=== PATIENT | female | born 1995 | race Hispanic/Latino ===

== ENCOUNTER 2019-10-04 15:36 | Outpatient (CLI) | payer OTHER ==
--- NOTE | 2019-10-04 16:16 | ULT ---
Exam: Transabdominal pelvic ultrasound HISTORY: Absent heart tones. Evaluate size and dates. COMPARISON: None TECHNIQUE: Transabdominal imaging of the gravid uterus is performed. Ovaries are interrogated with gr ayscale, color flow, Doppler imaging and spectral waveform analysis FINDINGS: Uterus is identified, without myometrial masses. Uterus measures 10.3 x 6.4 x 8.1 cm Within the endometrium, there is a gestational sac, yolk sac and pole. [place]-rump length is 1.5 cm corresponding to gestational age of 8 weeks 3 days. heart tones: 174 bpm No subchorionic hemorrhage Left ovary has a normal echotexture measuring 2.0 x 1.2 x 1.6 cm Right ovary has a normal echotexture measuring 2.5 x 1.8 x 2.8 cm. No free fluid Ovarian Doppler: Vascular flow to both ovaries IMPRESSION: 1. Single intrauterine gestation. Gestational age by crown-rump length is 8 weeks 3 days. 2. heart tones with a rate 174 bpm
== END 2019-10-04 15:37 | disposition home or self-care (01) ==
LOC: BICULT 15:36
PROVIDERS: ATTEND Family Medicine
DX: O99.611 Diseases of the digestive system complicating pregnancy, first trimester (principal); K62.5 Hemorrhage of anus and rectum; O99.281 Endocrine, nutritional and metabolic diseases complicating pregnancy, first trimester; E56.9 Vitamin deficiency, unspecified; O99.89 Other specified diseases and conditions complicating pregnancy, childbirth and the puerperium; R07.9 Chest pain, unspecified; R51 Headache; O21.9 Vomiting of pregnancy, unspecified; Z3A.08 8 weeks gestation of pregnancy
CPT/HCPCS: 76856; 93976

== ENCOUNTER 2019-10-06 08:49 | Inpatient (IN) | payer MEDICAID, OTHER ==
[2019-10-06] MEDS ORDERED: Ondansetron PF 4 MG/2 ML Vial ONE (09:54)
[2019-10-06 09:58] LABS: #Basophils 0.1 thou/uL (0.0-0.2); #Lymphocytes 0.9 thou/uL (1.20-3.40); #Monocytes 0.2 thou/uL (0.11-0.59); #Neutrophils 13.8 thou/uL (1.40-6.50); %Basophils 0.5 % (0.0-1.0); %Eosinophils 0.1 % (0.0-10.0); %Lymphocytes 5.8 % (21.0-51.0); %Monocytes 1.5 % (0.0-10.0); %Neutrophils 92.1 % (42.0-75.0); Hemoglobin 12.6 g/dL (12.0-16.0); Mean Corpuscular HGB CONC 34.6 g/dL (32.0-36.0); Mean Corpuscular Volume 81.1 fL (78.0-98.0); Platelet Count 301 thou/uL (130-400); RBC Distribution Width 13.5 % (11.5-14.5); Red Blood Cell (RBC) Count 4.48 mill/uL (4.20-5.40)
[2019-10-06 10:10] LABS: ALT (SGPT) 19 U/L (8-55); AST (SGOT) 21 U/L (5-34); Albumin 4.7 g/dL (3.5-5.0); Alkaline Phosphatase 37 U/L (40-110); Anion Gap 20 mmol/L (10-20); BUN (Urea Nitrogen) 8 mg/dL (7.0-18.7); Bilirubin, Total 0.7 mg/dL (0.2-1.2); CK (CPK) 120 U/L (29-168); Calc. Creatinine Clearance 0 mL/min (70-130); Calcium 9.4 mg/dL (7.8-10.44); Carbon Dioxide 10 mmol/L (22-29); Chloride 105 mmol/L (98-107); Estimated GFR-MDRD Greater than 90; Globulin 3.3 g/dL (2.4-3.5); Glucose 164 mg/dL (70-105); Lipase 18 U/L (8-78); Potassium 3.2 mmol/L (3.5-5.1); Sodium 132 mmol/L (136-145)
[2019-10-06 10:28] LABS: Bacteria/HPF None Seen HPF (None Seen); Bilirubin Negative (Negative); Blood, Urine 2+ (Negative); Clarity Clear (Clear); Glucose, Urine (Dipstick) 150 mg/dL (Negative); Leukocyte 25 Leu/uL (Negative); Nitrite Negative (Negative); Protein, Urine (Dipstick) 70 mg/dL (Neg-Trace); Urobilinogen Normal mg/dL (Less than 2)
[2019-10-06] MEDS ORDERED: Lidocaine Viscous Sol 2% 15 ml UD Cup ONE (10:35)
[2019-10-06] MEDS ORDERED: Promethazine HCl 25 MG/ML VIAL ONE (10:35)
[2019-10-06] MEDS ORDERED: Mag-Al 1200 mg/1200 mg/30 ML UDCUP ONE (10:35)
[2019-10-06] MEDS ORDERED: Sodium Chloride 0.9% 1,000 ML IV SCH (12:00)
[2019-10-06] MEDS ORDERED: Ondansetron ODT 4 MG TAB SL PRN (12:00)
[2019-10-06] MEDS ORDERED: Promethazine HCl 25 MG in Sodium Chloride 0.9% 50 ML IVPB PRN (12:00)
[2019-10-06] MEDS ORDERED: Ondansetron PF 4 MG/2 ML Vial IVP PRN (12:00)
--- NOTE | 2019-10-06 13:04 | PDOC.FPROB ---
FMR OB H&P: HPI - History of Present Illness Chief Complaint: Vomiting Indentification: 24 yo History of Present Illness: This is a at 8.5wks by 8.3 wk US who presents to the ED with a cc of burping and vomiting. She states it started yesterday morning off an on but has acutely worsened in the last 24 hours. She says she does not feel nauseous, the belching is what is bothering her most and is making her feel like she wants to vomit. She states she was improved in the shower. She tried zofran but threw it up. She reports subjective fever. Last BM was September 23. She reports she has had bright red blood per rectum since then. She reports pain when she tries to defecate. She found out she was on Sep 12, has not had a PNC appointment yet, although she did have an U/S completed on 10/04/2019 which showed she was at EGA of 8.3 weeks. Patient was arrested on Sep 21, 2019, on that day she reports heavily drinking a bottle of wine & smoking marijuana. Denies any other substance use. Of note, Patient does report that she has a history of Ulcerative Colitis which was diagnosed by colonoscopy with Dr. Elizondo in [place], [place] in 2014. She says she lost her insurance and has not had an appointment with him since 2016, also unable to take medications. She says she was taking Amitryptyline for her symptoms prior to knowing she was and has been switched to taking Prozac since then. Primary Care Physician: [facility] FMR OB H&P: Current - Care : 4 Para: 2011 Gestational age: 8.5 Dating Criteria: 8.3 wk sono - OB Labs Blood type: unknown RH: unknown Antibody Screen: unknown HIV: unknown RPR: unknown HepBsAg: unknown Quad screen: unknown Gonorrhea: unknown Chlamydia: unknown GBS: unknown - First Trimester Ultrasound First trimester: 8.3 weeks on 10/04/2019 FHR 174, normal dating U/S FMR OB H&P: History - Past Medical History PMH: Ulcerative colitis Anxiety Asthma - OB History OB History: Previous complications during with anemia and low BMI, also decreased movement with last 2 other deliveries were 1 elective - [facility] History [facility] History: Hx of chlamydia age 16 - Surgical History Sx History: Tooth extraction d/t infection, required hospitalization for 1 wk in May 2019 - Social History Social History: Last used marijuana September 21 Alcohol use September 21 full bottle of Red wine, occasional binge drinking - Family History Family History: Mother breast, ovarian, cervical Paternal side breast cancer FMR OB H&P: Medications - Current Home Medications: Medication Instructions Recorded Confirmed Type Ondansetron HCl [Zofran] 4 mg PO Q6HR PRN 10/06/19 10/06/19 History Pnv No.95/Ferrous Fum/Folic AC 1 each PO DAILY 10/06/19 10/06/19 History [ Multivitamin Tablet] Allergies/Adverse Reactions: Allergies Allergy/AdvReac Type Severity Reaction Status Date / Time No Known Allergies Allergy Unverified 10/06/19 15:45 FMR OB H&P: ROS - Review of Systems General: reports: weight/appetite/sleep changes, fatigue. denies: fever/chills Eyes: reports: vision changes (some blurry vision) ENT: denies: nasal congestion, rhinorrhea, sore throat Cardiovascular: reports: chest pain, palpitation Respiratory: denies: cough, congestion, shortness of breath Gastrointestinal: reports: vomiting, diarrhea, constipation, bright red blood. denies: abdominal pain, nausea Genitourinary (Female): denies: dysuria, vaginal discharge, vaginal pain, vaginal bleeding Musculoskeletal: denies: pain, stiffness, tenderness, redness Neurologic: reports: numbness (face, face and fingers), headache. denies: weakness, loss of counsciousness Integumentary: denies: itching, rash, lesions Endocrine: denies: polydipsia, polyuria Psychological: reports: anxiety. denies: depression FMR OB H&P: Vital Signs - Maternal Vital signs: BP 126/88, HR 104, Pulse ox 100% RA, RR 20, Temp FMR OB H&P: Physical Exam - Physical Exam General: awake, alert and oriented, other (Mild distress, no vomiting observed) HEENT: normocephalic and atraumatic, EOMI, MMM, conjunctiva clear, grossly normal vision, grossly normal hearing Neck: supple, no JVD Chest: non-tender to palpation Heart: RRR, normal S1/S2, no murmurs/rubs/gallops, pulses present, no edema General: CTAB, no respiratory distress, good air movement, no wheezing Abdomen: soft, bowel sound present Deviation from normal: TTP in epigastric area Musculoskeletal: pulses present Neurological: sensation to pain,touch and proprioception grossly normal, no focal deficit Skin: no rash, good tugor, no jaundice Lymphatic: no unusual bruising or bleeding Psychiatric: intact recent and remote memory, normal mood and affect FMR OB H&P: Results - Labs Lab results: Laboratory Results - last 24 hr 10/06/19 10/06/19 10/06/19 01:40 09:30 09:30 WBC 15.0 H RBC 4.48 Hgb 12.6 Hct 36.3 MCV 81.1 MCH 28.0 MCHC 34.6 RDW 13.5 Plt Count 301 MPV 9.0 Neutrophils % 92.1 H Lymphocytes % 5.8 L Monocytes % 1.5 Eosinophils % 0.1 Basophils % 0.5 Neutrophils # 13.8 H Lymphocytes # 0.9 L Monocytes # 0.2 Eosinophils # 0.0 Basophils # 0.1 Sodium 132 L Potassium 3.2 L Chloride 105 Carbon Dioxide 10 L Anion Gap 20 BUN 8 Creatinine 0.73 Estimated GFR (MDRD) Greater than 90 Glucose 164 H Calcium 9.4 Total Bilirubin 0.7 AST 21 ALT 19 Alkaline Phosphatase 37 L Creatine Kinase 120 Serum Total Protein 8.0 Albumin 4.7 Globulin 3.3 Albumin/Globulin Ratio 1.4 Lipase 18 Urine Color Light-Yellow Urine Clarity Clear Urine pH 5.5 Ur Specific [place] 1.027 Urine Protein 70 A Urine Glucose (UA) 150 A Urine Ketones Greater than 150 A Urine Blood 2+ A Urine Nitrite Negative Urine Bilirubin Negative Urine Urobilinogen Normal Ur Leukocyte Esterase 25 Urine RBC 11-20 A Urine WBC 4-6 A Ur Squamous Epith Cells 4-6 A Urine Bacteria None Seen FMR OB H&P: A/P - Problem List (1) Increased anion gap metabolic acidosis Current Visit: Yes Status: Acute Code(s): E87.2 - ACIDOSIS (2) Dehydration Current Visit: Yes Status: Acute Code(s): E86.0 - DEHYDRATION (3) Leukocytosis Current Visit: Yes Status: Acute Code(s): D72.829 - ELEVATED WHITE BLOOD CELL COUNT, UNSPECIFIED Qualifiers: Leukocytosis type: unspecified Qualified Code(s): D72.829 - Elevated white blood cell count, unspecified (4) Anxiety Current Visit: Yes Status: Acute Code(s): F41.9 - ANXIETY DISORDER, UNSPECIFIED (5) Rectal bleeding Current Visit: Yes Status: Acute Code(s): K62.5 - HEMORRHAGE OF ANUS AND RECTUM (6) Hypokalemia Current Visit: Yes Status: Acute Code(s): E87.6 - HYPOKALEMIA (7) First trimester Current Visit: Yes Status: Acute Code(s): Z34.91 - ENCNTR FOR SUPRVSN OF NORMAL PREG, UNSP, FIRST TRIMESTER Disposition: 24 yo female who presents with intractable belching and vomiting is admitted for dehydration & metabolic acidosis: #Anion gap metabolic acidosis #Dehydration 2/2 Vomiting -ER provided 3L NS, will continue on maintenance IVF LR @ 100 ml/hr -given GI cocktail in ED with minimal improvement -Promethazine [place] prn, Zofran 4 mg q6h marquise -Protonix BID -Simethicone BID -monitor I/Os, vitals q4h #Substance Abuse -reported hx of marijuana and EtOH abuse -UDS ordered & pending #Leukocytosis, unknown source -UA dirty catch in ER, positive for squamous epithelial, blood, ketones-will repeat UA with straight cath -check G/C off of urine sample #First Trimester -U/S at [facility] on 10/04/2019 shows 8.3 weeks EGA, otherwise normal U/S -continue vitamins -needs to be set up with PNC provider upon discharge #Rectal Bleeding #Constipation -check FOBT -says no BM since September 23 -start Miralax daily, Milk of Mag prn -request records from Dr. Smith, GI office in [place], [place] #Anxiety -continue home Prozac -Unisom for insomnia #Hx of Asthma -not currently on any home inhaler -continue home Symbicort -no recent exacerbations #Hypokalemia -K 3.2 on admission -give 20 meQ KCl IV Diet: Clear Liquids Code status: Full PCP: Ray Purdy Dispo: Stable, admitted to observation on ob/gyn physician/women's unit. Continue to provide fluid resuscitation, check labs, continue to monitor. Anticipate LOS < 48 hrs. Discussion: Date/Time: 10/06/19 1304 This H&P was discussed with Dr. Anand and Dr. Vargas who agree with the above documentation and plan. Addendum - Attending - Attending Attestation Date/Time: 10/06/19 9382 I personally evaluated the patient and discussed the management with Dr. Figueredo I agree with the History, Examination, Assessment and Plan documented above with any addition or exceptions noted below. Will admit patient for severe N/V of with concern for HEG. Patient has been dry heaving for the past several days. Has been triggered by burping. Reports marijuana use. Improved with hot showers. Unsure of weight loss. Labs reviewed. Noted to have electrolyte derangements. Ketones present in urine. UDS pending. TVUS reviewed from previous ER visit. pole documented. No evidence of molar . Make NPO until no evidence of emesis/dry heaving. Marquise Diclegis, zofran, protonix , simethocone. IL promethazine prn. Add reglan or steroids as needed. TPN at day 3 if still with symptoms. Jamilah
[2019-10-06] MEDS ORDERED: Acetaminophen 650 MG Suppository PR PRN (15:46)
[2019-10-06] MEDS ORDERED: Doxylamine 25 MG TAB PO PRN (15:46)
[2019-10-06] MEDS ORDERED: Milk Of Magnesia 30 ML UDCUP PO PRN (15:46)
[2019-10-06] MEDS ORDERED: Acetaminophen 325 MG TAB PO PRN (15:46)
[2019-10-06] MEDS ORDERED: Potassium Chloride 20 MEQ in Premix Bag 1 BAG IVPB SCH (16:00)
[2019-10-06 16:08] VITALS: BMI 25.1
[2019-10-06] MEDS: Lactated Ringer's 1,000 ML IV SCH (16:30)
[2019-10-06 17:42] LABS: Amphetamine Not Detected (NotDetected); Barbiturates Screen Not Detected (NotDetected); Benzodiazepine Screen Not Detected (NotDetected); Cocaine Metabolite Screen Not Detected (NotDetected); Medtox Control Line Valid? VALID (VALID); Medtox Reader # READER 4; Methadone Not Detected (NotDetected); Methamphetamine Not Detected (NotDetected); Opiate Screen Not Detected (NotDetected); Oxycodone Screen Not Detected (NotDetected); Phencyclidine (PCP) Not Detected (NotDetected); THC/Cannabinoid Screen Detected (NotDetected); Tricyclic Screen Detected (NotDetected)
[2019-10-06] MEDS: Ondansetron PF 4 MG/2 ML Vial IVP SCH (18:29)
[2019-10-06 18:33] LABS: Anion Gap 11 mmol/L (10-20); BUN (Urea Nitrogen) 4 mg/dL (7.0-18.7); Calc. Creatinine Clearance 126 mL/min (70-130); Calcium 7.7 mg/dL (7.8-10.44); Carbon Dioxide 14 mmol/L (22-29); Chloride 111 mmol/L (98-107); Estimated GFR-MDRD Greater than 90; Glucose 118 mg/dL (70-105); Potassium 3.1 mmol/L (3.5-5.1); Sodium 133 mmol/L (136-145)
[2019-10-06] MEDS ORDERED: pyridOXINE 50 MG (B6) TAB PO PRN (19:38)
--- NOTE | 2019-10-06 19:38 | PDOC.BPN ---
- Brief Progress Note Paged By RN for increased abdominal pain, Nausea and continued vomiting. Pt describes pain in epigastric area and need to belch. Feels similar to heartburn. Gets better w/ hot shower. Is passing gas, feels better w/ passing gas. Does not feel she has any stool to pass; has not been eating/drinking or keeping anything down since started. VSS. No fever. Examined pt. Abdomen is tender over RLQ. No rebound, Rovsing neg, psoas negative. No guarding. Abdomen is very soft. Mild TTP over epigastric area. +BS , not hypo- nor hyperactive. RRR, no murmur Lungs CTAB Informed nurse to use heating pad for patient's chest and epigastric area since no staff is available to monitor her in shower (residential patient w/ male guard). Give GI cocktail. Give simethicone, pantoprazole, and unisom dose early, will add pyridoxine to make Diclegis. Order fleet enema prn for no BM for couple of weeks now. Do not think imaging is warranted at this time; abdomen did not appear acutely distended. Informed RN to notify MD if spikes fever or acute worsening of abdomen.
[2019-10-06] MEDS ORDERED: Fleet Enema 133 ML BOT PR PRN (19:42)
[2019-10-06] MEDS ORDERED: Lidocaine 2% Viscous Solution 10 ML, Aluminum & Magnesium Hydroxide 30 ML SSW SCH (19:45)
[2019-10-06] MEDS: Simethicone Chewable 80 MG TAB PO SCH (20:31)
[2019-10-06] MEDS: Multivitamins, Adult 10 ML, Folic Acid 1 MG, Thiamine HCl 100 MG in Dextrose 5 %-0.45 %... IV SCH (20:31)
[2019-10-06] MEDS: Pantoprazole 40 MG VIAL IVP SCH (20:31)
--- NOTE | 2019-10-06 22:28 | PDOC.BPN ---
- Brief Progress Note reevaluated pt to see if any improvement. Received the simethicone and PPI. Resting comfortably. Pain improved. dynamo tender to palpation over RLQ and epigastrium as before. Unchanged abdomen. patient more comfortable at rest.
[2019-10-07] MEDS: Ondansetron PF 4 MG/2 ML Vial IVP SCH ×5 (00:20→23:33)
[2019-10-07] MEDS: Lactated Ringer's 1,000 ML IV SCH ×5 (02:44→20:30)
[2019-10-07 06:02] LABS: #Lymphocytes 2.6 thou/uL (1.20-3.40); #Neutrophils 11.6 thou/uL (1.40-6.50); %Basophils 0.1 % (0.0-1.0); %Eosinophils 0.1 % (0.0-10.0); %Monocytes 6.8 % (0.0-10.0); %Neutrophils 76.1 % (42.0-75.0); ALT (SGPT) 17 U/L (8-55); AST (SGOT) 23 U/L (5-34); Albumin 4.2 g/dL (3.5-5.0); Alkaline Phosphatase 37 U/L (40-110); Anion Gap 11 mmol/L (10-20); BUN (Urea Nitrogen) Less than 4 mg/dL (7.0-18.7); Bilirubin, Total 0.7 mg/dL (0.2-1.2); Calc. Creatinine Clearance 128 mL/min (70-130); Calcium 8.6 mg/dL (7.8-10.44); Carbon Dioxide 18 mmol/L (22-29); Chloride 104 mmol/L (98-107); Estimated GFR-MDRD Greater than 90; Globulin 3.1 g/dL (2.4-3.5); Glucose 124 mg/dL (70-105); Hemoglobin 11.8 g/dL (12.0-16.0); Large Platelets SLIGHT; MDiff Complete? YES; Mean Corpuscular HGB CONC 35.2 g/dL (32.0-36.0); Mean Corpuscular Hemoglobin 28.2 pg (27.0-31.0); Mean Corpuscular Volume 80.2 fL (78.0-98.0); Mean Platelet Volume 8.8 fL (7.4-10.4); Platelet Count 311 thou/uL (130-400); Protein, Total 7.3 g/dL (6.0-8.3); RBC Distribution Width 13.8 % (11.5-14.5); RBC Morphology Normal; Sodium 130 mmol/L (136-145); White Blood Cell (WBC) Count 15.3 thou/uL (4.8-10.8)
[2019-10-07 06:07] LABS: Potassium 2.9 mmol/L (3.5-5.1)
[2019-10-07] MEDS ORDERED: Potassium Chloride 20 MEQ in Premix Bag 1 BAG IVPB SCH ×2 (06:30→17:30)
[2019-10-07] MEDS ORDERED: Potassium Chloride 20 MEQ TAB PO SCH (06:30)
--- NOTE | 2019-10-07 07:08 | PDOC.FM ---
- Subjective Subjective: Patient states that the Simethicone helped her belching, still belching occasionally but much improved. No episodes of vomiting since yesterday evening. Says her abdominal pain is now mostly in the RLQ. Also complains of pain across low back which improves with heating pad. Has not had a bowel movement yet but states it feels like she does have to have one. Patient reports additionally history that she has had kidney stones in the past. - Objective Vital Signs & Weight: Vital Signs (12 hours) Temp Pulse Resp BP Pulse Ox 10/07/19 04:00 98.2 F 74 20 153/97 H 100 10/07/19 00:00 98.8 F 75 20 128/75 100 10/06/19 20:00 100 10/06/19 19:33 98.2 F 92 22 H 146/89 H 100 Weight Weight 60.328 kg Result Diagrams: 10/08/19 05:28 10/08/19 05:28 Phys Exam - Physical Examination Constitutional: NAD HEENT: moist MMs Neck: no JVD, supple, full ROM Respiratory: no wheezing, no rhonchi, clear to auscultation bilateral Cardiovascular: RRR, no significant murmur Gastrointestinal: soft, no distention, positive bowel sounds TTP in RLQ Musculoskeletal: no edema, pulses present TTP across low back Neurological: normal sensation, moves all 4 limbs Psychiatric: normal affect, A&O x 3 Skin: no rash, normal turgor Dx/Plan (1) Increased anion gap metabolic acidosis Code(s): E87.2 - ACIDOSIS Status: Acute (2) Dehydration Code(s): E86.0 - DEHYDRATION Status: Acute (3) Leukocytosis Code(s): D72.829 - ELEVATED WHITE BLOOD CELL COUNT, UNSPECIFIED Status: Acute Qualifiers: Leukocytosis type: unspecified Qualified Code(s): D72.829 - Elevated white blood cell count, unspecified (4) Anxiety Code(s): F41.9 - ANXIETY DISORDER, UNSPECIFIED Status: Acute (5) Rectal bleeding Code(s): K62.5 - HEMORRHAGE OF ANUS AND RECTUM Status: Acute (6) Hypokalemia Code(s): E87.6 - HYPOKALEMIA Status: Acute (7) First trimester Code(s): Z34.91 - ENCNTR FOR SUPRVSN OF NORMAL PREG, UNSP, FIRST TRIMESTER Status: Acute - Plan Plan: 24 yo female who presents with intractable belching and vomiting is admitted for dehydration & metabolic acidosis: #Anion gap metabolic acidosis #Dehydration 2/2 Vomiting -ER provided 3L NS, will continue on maintenance IVF LR @ 100 ml/hr -given GI cocktail in ED with minimal improvement -Promethazine MA prn, Zofran 4 mg q6h cynthia -Protonix BID -Simethicone BID -monitor I/Os, vitals q4h -Pyridoxine #Substance Abuse -reported hx of marijuana and EtOH abuse -UDS positive for cannabinoids & tricyclics, c/w given history #Leukocytosis, unknown source -UA dirty catch in ER, positive for squamous epithelial, blood, ketones-will repeat UA with straight cath -check G/C off of urine sample #First Trimester -U/S at [facility] on 10/04/2019 shows 8.3 weeks EGA, otherwise normal U/S -continue vitamins -needs to be set up with PNC provider upon discharge #Rectal Bleeding #Constipation -check FOBT -says no BM since September 23 -start Miralax daily, Milk of Mag prn -request records from Dr. Smith, GI office in [place], [place] #Anxiety -continue home Prozac -Unisom for insomnia #Hx of Asthma -not currently on any home inhaler -continue home Symbicort -no recent exacerbations #Hypokalemia -K 3.2 on admission, 2.9 on 10/07 -give 20 meQ KCl IV, additional 80 meQ on 10/07 Diet: Clear Liquids Code status: Full PCP: [facility] Dispo: Stable, admitted to observation on otolaryngology rep/women's unit. Continue to provide fluid resuscitation, labs pending, continue to monitor. Anticipate LOS < 48 hrs. Addendum - Attending - Attending Attestation Date/Time: 10/07/19 9490 I personally evaluated the patient and discussed the management with Dr. Figueredo I agree with the History, Examination, Assessment and Plan documented above with any addition or exceptions noted below. HD#1 Will continue current plan. Still with some symptoms. Improving. Maintain NPO. Adjust IVFs. Consider TPN tomorrow if still with symptoms. Add reglan if without any improvement tomorrow. Continue to monitor BP closely. Patient very anxious and in lots of discomfort from dry heaving unsure at this time if related to HTN. Evaluate once symptoms controlled. No prior history. Jamilah
[2019-10-07] MEDS: Simethicone Chewable 80 MG TAB PO SCH ×4 (08:29→20:29)
[2019-10-07] MEDS: Prenatal Vitamin 1 TAB PO SCH (08:29)
[2019-10-07] MEDS: Polyethylene Glycol 3350 17 GM Packet PO SCH (08:29)
[2019-10-07] MEDS: Pantoprazole 40 MG VIAL IVP SCH ×2 (08:29→20:29)
[2019-10-07] MEDS: Doxylamine 25 MG TAB PO SCH ×2 (12:46→20:29)
[2019-10-07 14:36] LABS: Anion Gap 13 mmol/L (10-20); BUN (Urea Nitrogen) Less than 4 mg/dL (7.0-18.7); Calc. Creatinine Clearance 134 mL/min (70-130); Calcium 8.7 mg/dL (7.8-10.44); Carbon Dioxide 14 mmol/L (22-29); Chloride 110 mmol/L (98-107); Estimated GFR-MDRD Greater than 90; Glucose 108 mg/dL (70-105); Potassium 3.5 mmol/L (3.5-5.1); Sodium 133 mmol/L (136-145)
[2019-10-07 15:49] LABS: Bacteria/HPF None Seen HPF (None Seen); Bilirubin Negative (Negative); Blood, Urine 1+ (Negative); Clarity Clear (Clear); Glucose, Urine (Dipstick) Normal (Negative); Leukocyte Negative Leu/uL (Negative); Nitrite Negative (Negative); Protein, Urine (Dipstick) 30 mg/dL (Neg-Trace); Urobilinogen Normal mg/dL (Less than 2)
[2019-10-07 15:54] LABS: Urine Culture Reflex No No
[2019-10-07] MEDS: Multivitamins, Adult 10 ML, Folic Acid 1 MG, Thiamine HCl 100 MG in Dextrose 5 %-0.45 %... IV SCH (16:35)
[2019-10-07] MEDS: Promethazine HCl 25 MG SUPP PR PRN (19:18)
[2019-10-08] MEDS: Promethazine HCl 25 MG SUPP PR PRN (01:09)
[2019-10-08] MEDS: Ondansetron PF 4 MG/2 ML Vial IVP SCH ×4 (05:08→23:12)
--- NOTE | 2019-10-08 05:31 | PDOC.FM ---
- Subjective Subjective: Pt reports worsening abdominal pain, no BM, and some pain. She denies vomiting but does report dry heaving. She has had some clear liquids but does not report frequent PO intake. - Objective Vital Signs & Weight: Vital Signs (12 hours) Temp Pulse Resp BP Pulse Ox 10/07/19 20:00 100 10/07/19 19:33 99.1 F 67 19 159/98 H 100 Weight Admit Weight 60.328 kg Weight 60.328 kg Result Diagrams: 10/08/19 05:28 10/08/19 05:28 Phys Exam - Physical Examination Constitutional: NAD HEENT: moist MMs Neck: full ROM Respiratory: no wheezing, clear to auscultation bilateral Cardiovascular: RRR, no significant murmur, no rub Gastrointestinal: soft, no distention, positive bowel sounds Diffuse tenderness with palpation, worse than before Musculoskeletal: no edema, pulses present Neurological: normal sensation, moves all 4 limbs Psychiatric: normal affect, A&O x 3 Skin: cap refill <2 seconds Dx/Plan (1) Anxiety Code(s): F41.9 - ANXIETY DISORDER, UNSPECIFIED Status: Acute (2) Dehydration Code(s): E86.0 - DEHYDRATION Status: Acute (3) First trimester Code(s): Z34.91 - ENCNTR FOR SUPRVSN OF NORMAL PREG, UNSP, FIRST TRIMESTER Status: Acute (4) Hypokalemia Code(s): E87.6 - HYPOKALEMIA Status: Acute (5) Increased anion gap metabolic acidosis Code(s): E87.2 - ACIDOSIS Status: Acute (6) Leukocytosis Code(s): D72.829 - ELEVATED WHITE BLOOD CELL COUNT, UNSPECIFIED Status: Acute Qualifiers: Leukocytosis type: unspecified Qualified Code(s): D72.829 - Elevated white blood cell count, unspecified (7) Rectal bleeding Code(s): K62.5 - HEMORRHAGE OF ANUS AND RECTUM Status: Acute - Plan Plan: This is a at 9.0wks by 8.3wk US with a pmh of anxiety, asthma, UC vs IBS Vomiting/belching morning sickness vs cyclic vomiting syndrome due to chronic cannabis use -Promethazine [place] PRN, Scheduled zofran -Simethicone BID -Pyridoxine and doxylamine Dehydration 2/2 above, resolved Anion Gap metabolic acidosis, resolved Substance abuse -Use of marijuana, EtOH during -UDS positive for cannabinoids and tricyclics Leukocytosis -Pending urine culture and urine GC/Chlamydia Rectal bleeding/constipatin -Miralax -PRN milk of mag -suppositories -Plan for manual disimpaction later today -Pending records from Dr. Smith, GI office in [place] Anxiety -Continue home prozac Hx of asthma -Continue Symbicort -Currently controlled Hypokalemia -Replacing Addendum - Attending - Attending Attestation Date/Time: 10/08/19 9409 I personally evaluated the patient and discussed the management with Dr. Anand I agree with the History, Examination, Assessment and Plan documented above with any addition or exceptions noted below - Patient reports that still having some nausea but tolerating small amounts of liquids. c/o abdominal pain but has not had a recent BM. Afebrile VSS. A/P: 1) N/V of - continue current antiemetic regimen. 2) Constipation- will check rectal and disimpact her if needed. Also started on bowel regimen with miralax.
[2019-10-08 06:06] LABS: Anion Gap 11 mmol/L (10-20); BUN (Urea Nitrogen) 4 mg/dL (7.0-18.7); Calc. Creatinine Clearance 130 mL/min (70-130); Calcium 8.2 mg/dL (7.8-10.44); Carbon Dioxide 16 mmol/L (22-29); Chloride 107 mmol/L (98-107); Estimated GFR-MDRD Greater than 90; Glucose 140 mg/dL (70-105); Potassium 3.2 mmol/L (3.5-5.1); Sodium 131 mmol/L (136-145)
[2019-10-08 06:07] LABS: #Lymphocytes 2.2 thou/uL (1.20-3.40); #Neutrophils 13.7 thou/uL (1.40-6.50); %Basophils 0.1 % (0.0-1.0); %Eosinophils 0.3 % (0.0-10.0); %Lymphocytes 12.7 % (21.0-51.0); %Neutrophils 80.9 % (42.0-75.0); Hemoglobin 11.3 g/dL (12.0-16.0); Mean Corpuscular HGB CONC 35.7 g/dL (32.0-36.0); Mean Corpuscular Hemoglobin 28.4 pg (27.0-31.0); Mean Corpuscular Volume 79.6 fL (78.0-98.0); Platelet Count 274 thou/uL (130-400); RBC Distribution Width 13.8 % (11.5-14.5); Red Blood Cell (RBC) Count 3.99 mill/uL (4.20-5.40)
[2019-10-08] MEDS: Lactated Ringer's 1,000 ML IV SCH ×2 (08:52→17:11)
[2019-10-08] MEDS: Polyethylene Glycol 3350 17 GM Packet PO SCH (08:52)
[2019-10-08] MEDS: Doxylamine 25 MG TAB PO SCH ×3 (08:53→21:16)
[2019-10-08] MEDS: Simethicone Chewable 80 MG TAB PO SCH ×4 (08:53→21:16)
[2019-10-08] MEDS: Pantoprazole 40 MG VIAL IVP SCH ×2 (08:53→21:17)
[2019-10-08] MEDS: Prenatal Vitamin 1 TAB PO SCH (08:53)
[2019-10-08] MEDS: Multivitamins, Adult 10 ML, Folic Acid 1 MG, Thiamine HCl 100 MG in Dextrose 5 %-0.45 %... IV SCH (16:58)
[2019-10-08] MEDS: Potassium Bicarbonate/Cit Ac 25 MEQ TAB PO SCH (17:01)
[2019-10-08 21:58] LABS: Chlam.trachomatis by PCR,Urine Not Detected (NotDetected)
[2019-10-09] MEDS: Lactated Ringer's 1,000 ML IV SCH ×2 (01:55→08:29)
[2019-10-09] MEDS: Ondansetron PF 4 MG/2 ML Vial IVP SCH ×3 (05:52→17:22)
--- NOTE | 2019-10-09 06:00 | PDOC.FM ---
- Subjective Subjective: Pt reports she is doing better this morning. She had some nausea with drinking milk of mag but otherwise is better. She states her abdominal pain is improved. She has not had a BM since yesterday but feels like she may be ready. She denies fever, chills, sob, or chest pain. - Objective MAR Reviewed: Yes Vital Signs & Weight: Vital Signs (12 hours) Temp Pulse Resp BP Pulse Ox 10/08/19 20:00 99 10/08/19 19:50 98.6 F 78 20 114/76 99 Weight Admit Weight 60.328 kg Weight 60.328 kg I&O: 10/07/19 10/08/19 10/09/19 06:59 06:59 06:59 Intake Total 1000 Balance 1000 Result Diagrams: 10/09/19 07:10 10/09/19 07:10 Phys Exam - Physical Examination Constitutional: NAD HEENT: moist MMs Neck: full ROM Respiratory: no wheezing, no rales, clear to auscultation bilateral Cardiovascular: RRR, no significant murmur, no rub Gastrointestinal: soft, no distention, positive bowel sounds TTP but improving Musculoskeletal: no edema, pulses present Neurological: moves all 4 limbs Psychiatric: normal affect, A&O x 3 Skin: cap refill <2 seconds Dx/Plan (1) Anxiety Code(s): F41.9 - ANXIETY DISORDER, UNSPECIFIED Status: Acute (2) Dehydration Code(s): E86.0 - DEHYDRATION Status: Acute (3) First trimester Code(s): Z34.91 - ENCNTR FOR SUPRVSN OF NORMAL PREG, UNSP, FIRST TRIMESTER Status: Acute (4) Hypokalemia Code(s): E87.6 - HYPOKALEMIA Status: Acute (5) Increased anion gap metabolic acidosis Code(s): E87.2 - ACIDOSIS Status: Acute (6) Leukocytosis Code(s): D72.829 - ELEVATED WHITE BLOOD CELL COUNT, UNSPECIFIED Status: Acute Qualifiers: Leukocytosis type: unspecified Qualified Code(s): D72.829 - Elevated white blood cell count, unspecified (7) Rectal bleeding Code(s): K62.5 - HEMORRHAGE OF ANUS AND RECTUM Status: Acute - Plan Plan: This is a at 9.0wks by 8.3wk US with a pmh of anxiety, asthma, UC vs IBS Vomiting/belching morning sickness vs cyclic vomiting syndrome due to chronic cannabis use, improved -Promethazine [place] PRN, Scheduled zofran -Simethicone BID -Pyridoxine and doxylamine Dehydration 2/2 above, resolved Anion Gap metabolic acidosis, resolved Substance abuse -Use of marijuana, EtOH during -UDS positive for cannabinoids and tricyclics Leukocytosis, resolved -Pending urine culture and urine GC/Chlamydia Rectal bleeding/constipation -s/p rectal disimpaction 10/08/19, hard stool removed from rectal vault, will repeat as needed -Miralax -PRN milk of mag -suppositories -Pending records from Dr. Smith, GI office in [place] Anxiety -Continue home prozac Hx of asthma -Continue Symbicort -Currently controlled Hypokalemia -Replacing Addendum - Attending - Attending Attestation Date/Time: 10/09/19 1340 I personally evaluated the patient and discussed the management with Dr. Anand I agree with the History, Examination, Assessment and Plan documented above with any addition or exceptions noted below - Patient feeling better. No vomiting. Abdominal pain improving. No BM. Afebrile VSS A/P: 1) Hyperemesis - will advance diet to full liquid. Continue antiemetic regimen 2) Constipation- continue bowel regimen
[2019-10-09] MEDS ORDERED: Milk Of Magnesia 30 ML UDCUP PO SCH (06:15)
[2019-10-09 07:20] LABS: #Basophils 0.1 thou/uL (0.0-0.2); #Eosinphils 0.1 thou/uL (0.0-0.7); #Lymphocytes 2.9 thou/uL (1.20-3.40); #Monocytes 0.6 thou/uL (0.11-0.59); #Neutrophils 5.3 thou/uL (1.40-6.50); %Basophils 0.8 % (0.0-1.0); %Eosinophils 0.9 % (0.0-10.0); %Lymphocytes 31.9 % (21.0-51.0); %Neutrophils 59.3 % (42.0-75.0); Hemoglobin 10.9 g/dL (12.0-16.0); Mean Corpuscular HGB CONC 34.5 g/dL (32.0-36.0); Mean Corpuscular Hemoglobin 28.1 pg (27.0-31.0); Mean Corpuscular Volume 81.4 fL (78.0-98.0); Mean Platelet Volume 8.6 fL (7.4-10.4); Platelet Count 235 thou/uL (130-400); RBC Distribution Width 14.1 % (11.5-14.5); Red Blood Cell (RBC) Count 3.88 mill/uL (4.20-5.40)
[2019-10-09 07:37] LABS: Anion Gap 10 mmol/L (10-20); BUN (Urea Nitrogen) 4 mg/dL (7.0-18.7); Calc. Creatinine Clearance 134 mL/min (70-130); Calcium 8.1 mg/dL (7.8-10.44); Carbon Dioxide 22 mmol/L (22-29); Chloride 107 mmol/L (98-107); Estimated GFR-MDRD Greater than 90; Glucose 80 mg/dL (70-105); Potassium 3.5 mmol/L (3.5-5.1); Sodium 135 mmol/L (136-145)
[2019-10-09] MEDS: Pantoprazole 40 MG VIAL IVP SCH ×2 (08:29→20:36)
[2019-10-09] MEDS: Doxylamine 25 MG TAB PO SCH ×3 (08:29→20:38)
[2019-10-09] MEDS: Potassium Bicarbonate/Cit Ac 25 MEQ TAB PO SCH ×2 (08:29→17:21)
[2019-10-09] MEDS: Polyethylene Glycol 3350 17 GM Packet PO SCH (08:29)
[2019-10-09] MEDS: Prenatal Vitamin 1 TAB PO SCH (08:29)
[2019-10-09] MEDS: Simethicone Chewable 80 MG TAB PO SCH ×4 (08:29→20:36)
[2019-10-10] MEDS: Lactated Ringer's 1,000 ML IV SCH (00:40)
[2019-10-10] MEDS: Ondansetron PF 4 MG/2 ML Vial IVP SCH ×3 (01:09→12:09)
--- NOTE | 2019-10-10 07:02 | PDOC.FM ---
- Subjective Subjective: Pt reports she had two large, firm BMs overnight. She state she had associated abdominal pain that was relieved following her BM. She denies nausea or vomiting. - Objective MAR Reviewed: Yes Vital Signs & Weight: Vital Signs (12 hours) Temp Pulse Resp BP Pulse Ox 10/09/19 20:00 98 10/09/19 19:29 98.7 F 83 20 112/72 98 Weight Admit Weight 60.328 kg Weight 60.328 kg I&O: 10/09/19 10/10/19 10/11/19 06:59 06:59 06:59 Intake Total 999 2049 Balance 999 2049 Result Diagrams: 10/09/19 07:10 10/09/19 07:10 Phys Exam - Physical Examination Constitutional: NAD HEENT: moist MMs Neck: full ROM Respiratory: no wheezing, no rales, no rhonchi, clear to auscultation bilateral Cardiovascular: RRR, no significant murmur, no rub Gastrointestinal: soft, no distention, positive bowel sounds Improving diffuse tenderness Musculoskeletal: no edema, pulses present Neurological: moves all 4 limbs Psychiatric: A&O x 3 Skin: cap refill <2 seconds Dx/Plan (1) Anxiety Code(s): F41.9 - ANXIETY DISORDER, UNSPECIFIED Status: Acute (2) Dehydration Code(s): E86.0 - DEHYDRATION Status: Acute (3) First trimester Code(s): Z34.91 - ENCNTR FOR SUPRVSN OF NORMAL PREG, UNSP, FIRST TRIMESTER Status: Acute (4) Hypokalemia Code(s): E87.6 - HYPOKALEMIA Status: Acute (5) Increased anion gap metabolic acidosis Code(s): E87.2 - ACIDOSIS Status: Acute (6) Leukocytosis Code(s): D72.829 - ELEVATED WHITE BLOOD CELL COUNT, UNSPECIFIED Status: Acute Qualifiers: Leukocytosis type: unspecified Qualified Code(s): D72.829 - Elevated white blood cell count, unspecified (7) Rectal bleeding Code(s): K62.5 - HEMORRHAGE OF ANUS AND RECTUM Status: Acute - Plan Plan: This is a at 9.1wks by 8.3wk US with a pmh of anxiety, asthma, UC vs IBS Vomiting/belching morning sickness vs cyclic vomiting syndrome due to chronic cannabis use, improved -Promethazine [place] PRN, Scheduled zofran -Simethicone BID -Pyridoxine and doxylamine Dehydration 2/2 above, resolved Anion Gap metabolic acidosis, resolved Substance abuse -Use of marijuana, EtOH during -UDS positive for cannabinoids and tricyclics Leukocytosis, resolved -Pending urine culture and urine GC/Chlamydia Rectal bleeding/constipation likely related to IBS -s/p rectal disimpaction 10/08/19, hard stool removed from rectal vault, will repeat as needed -Miralax -PRN milk of mag -suppositories -Pending records from Dr. Smith, GI office in [place] Anxiety -Continue home prozac Hx of asthma -Continue Symbicort -Currently controlled Hypokalemia -Replacing Addendum - Attending - Attending Attestation Date/Time: 10/10/19 1145 I personally evaluated the patient and discussed the management with Dr. Anand I agree with the History, Examination, Assessment and Plan documented above with any addition or exceptions noted below - Patient feeling better. Had 2 BM yesterday and abdominal pain improved. Tolerating clears; still minimal solids; wants to try regular meal. Afebrile VSS. A/P: 1) Hyperemesis- improving; continue current med regimen/ If tolerates diet, will plan to d/c later today. 2 ) Hypokalemia- resolved.
[2019-10-10 07:43] VITALS: BP 114/76; TEMP 97.9
[2019-10-10] MEDS ORDERED: Polyethylene Glycol 3350 17 GM Packet PO SCH (09:00)
[2019-10-10] MEDS: Pantoprazole 40 MG VIAL IVP SCH (09:01)
[2019-10-10] MEDS: Potassium Bicarbonate/Cit Ac 25 MEQ TAB PO SCH (09:02)
[2019-10-10] MEDS: Prenatal Vitamin 1 TAB PO SCH (09:03)
[2019-10-10] MEDS: Simethicone Chewable 80 MG TAB PO SCH ×2 (09:05→12:09)
[2019-10-10] MEDS: Doxylamine 25 MG TAB PO SCH ×2 (12:00→15:33)
== END 2019-10-10 16:04 | DRG 832 ==
LOC: ERS 08:49 → T4-A 12:47
PROVIDERS: ADMIT Student in an Organized Health Care Education/Training Program; ATTEND Student in an Organized Health Care Education/Training Program
DX: O21.1 Hyperemesis gravidarum with metabolic disturbance (principal); O99.321 Drug use complicating pregnancy, first trimester; K51.911 Ulcerative colitis, unspecified with rectal bleeding; O99.111 Other diseases of the blood and blood-forming organs and certain disorders involving the immune mechanism complicating pregnancy, first trimester; J45.909 Unspecified asthma, uncomplicated; F41.9 Anxiety disorder, unspecified; O99.341 Other mental disorders complicating pregnancy, first trimester; O99.611 Diseases of the digestive system complicating pregnancy, first trimester; O99.511 Diseases of the respiratory system complicating pregnancy, first trimester; O99.281 Endocrine, nutritional and metabolic diseases complicating pregnancy, first trimester; F12.10 Cannabis abuse, uncomplicated; O99.311 Alcohol use complicating pregnancy, first trimester; K59.00 Constipation, unspecified; F10.10 Alcohol abuse, uncomplicated; Z3A.08 8 weeks gestation of pregnancy; D72.829 Elevated white blood cell count, unspecified
CPT/HCPCS: 36415; 80048; 80053; 80306; 81001; 81003; 81015; 82274; 82550; 83690; 83735; 85025; 87086; 87491; 87591; C9113; J2405; J2550; J3411; J3480; J7042

== ENCOUNTER 2023-10-29 10:59 | Inpatient (IN) | payer MEDICAID, SELFPAY ==
[2023-10-29] MEDS ORDERED: Morphine 4 MG/ML VIAL ONE ×2 (11:21→15:33)
[2023-10-29] MEDS ORDERED: Dicyclomine 20 MG/2 ML VIAL ONE (11:21)
[2023-10-29] MEDS ORDERED: Ondansetron PF 4 MG/2 ML Vial ONE ×2 (11:22→15:33)
[2023-10-29 11:56] LABS: #Monocytes 0.5 thou/uL (0.11-0.59); %Basophils 0.1 % (0.0-1.0); %Eosinophils 0.1 % (0.0-10.0); %Lymphocytes 28.9 % (21.0-51.0); %Monocytes 5.9 % (0.0-10.0); %Neutrophils 64.6 % (42.0-75.0); Hematocrit 35.2 % (36.0-47.0); Hemoglobin 12.1 g/dL (12.0-16.0); Mean Corpuscular HGB CONC 34.4 g/dL (32.0-36.0); Mean Corpuscular Hemoglobin 28.6 pg (27.0-31.0); Mean Corpuscular Volume 83.2 fl (78.0-98.0); Platelet Count 357 10x3/uL (130-400); RBC Distribution Width 13.8 % (11.5-14.5); Red Blood Cell (RBC) Count 4.23 mill/uL (4.20-5.40); White Blood Cell (WBC) Count 7.7 10x3/uL (4.8-10.8)
[2023-10-29 12:02] LABS: BHCG - Serum Negative (NEGATIVE); Pregs Control Background? CLEAR/WHITE (CLR/WHITE); Pregs Control Bar Appear? YES (CONTROL BAR)
[2023-10-29 12:19] LABS: CRP (Inflammatory) Less than 0.50 mg/dL (= or < 0.5); Lipase 14 U/L (8-78)
[2023-10-29 12:20] LABS: ALT (SGPT) 7 U/L (8-55); AST (SGOT) 15 U/L (5-34); Albumin 4.8 g/dL (3.5-5.0); Alkaline Phosphatase 50 U/L (40-110); Anion Gap 13 mmol/L (10-20); BUN (Urea Nitrogen) 12 mg/dL (7.0-18.7); Bilirubin, Total 0.5 mg/dL (0.2-1.2); Calc. Creatinine Clearance 0 mL/min (70-130); Calcium 9.6 mg/dL (7.8-10.44); Carbon Dioxide 18 mmol/L (22-29); Chloride 109 mmol/L (98-107); Estimated GFR 107; Glucose 125 mg/dL (70-105); Potassium 3.6 mmol/L (3.5-5.1); Protein, Total 7.8 g/dL (6.0-8.3); Sodium 136 mmol/L (136-145)
[2023-10-29] MEDS ORDERED: Dexamethasone 10 MG/ML VIAL ONE (14:35)
[2023-10-29] MEDS ORDERED: HYDROcodone/Acetaminophen 5/325 mg Tablet PO PRN (15:25)
[2023-10-29] MEDS ORDERED: Acetaminophen 650 MG Suppository PR PRN (15:25)
[2023-10-29] MEDS ORDERED: Melatonin 3 MG TAB PO PRN (15:25)
[2023-10-29] MEDS ORDERED: Acetaminophen 325 MG TAB PO PRN (15:25)
[2023-10-29 17:55] VITALS: BMI 33.2
[2023-10-29] MEDS: methylPREDNISolone Sod Succ 40 MG VIAL IVP SCH ×2 (18:09→21:10)
[2023-10-29] MEDS: Escitalopram Oxalate 20 mg Tablet PO SCH (18:09)
[2023-10-29 18:30] LABS: Amphetamine Not Detected (NotDetected); Barbiturates Screen Not Detected (NotDetected); Benzodiazepine Screen Not Detected (NotDetected); Cocaine Metabolite Screen Not Detected (NotDetected); Methadone Not Detected (NotDetected); Methamphetamine Not Detected (NotDetected); Opiate Screen Detected (NotDetected); Oxycodone Screen Not Detected (NotDetected); Phencyclidine (PCP) Not Detected (NotDetected); THC/Cannabinoid Screen Detected (NotDetected); Tricyclic Screen Detected (NotDetected)
[2023-10-29] MEDS: Metoclopramide HCl 10 MG (2 mL) VIAL IVP PRN (19:42)
[2023-10-29] MEDS: QUEtiapine 25 MG TAB PO SCH (21:09)
[2023-10-29] MEDS: HYDROcodone/Acetaminophen 5/325 mg Tablet PO PRN (21:09)
[2023-10-30 04:37] LABS: #Monocytes 0.2 thou/uL (0.11-0.59); #Neutrophils 5.1 thou/uL (1.40-6.50); %Lymphocytes 23.2 % (21.0-51.0); %Monocytes 3.2 % (0.0-10.0); %Neutrophils 73.2 % (42.0-75.0); Hematocrit 32.8 % (36.0-47.0); Hemoglobin 10.8 g/dL (12.0-16.0); Mean Corpuscular HGB CONC 32.9 g/dL (32.0-36.0); Mean Corpuscular Hemoglobin 28.4 pg (27.0-31.0); Mean Platelet Volume 10.2 fL (7.4-10.4); Platelet Count 356 10x3/uL (130-400); RBC Distribution Width 14.2 % (11.5-14.5); White Blood Cell (WBC) Count 6.9 10x3/uL (4.8-10.8)
[2023-10-30 04:38] LABS: Mean Corpuscular Volume 86.3 fl (78.0-98.0)
[2023-10-30 04:54] LABS: Anion Gap 11 mmol/L (10-20); BUN (Urea Nitrogen) 9 mg/dL (7.0-18.7); Calc. Creatinine Clearance 151 mL/min (70-130); Carbon Dioxide 20 mmol/L (22-29); Chloride 108 mmol/L (98-107); Sodium 135 mmol/L (136-145)
[2023-10-30 04:55] LABS: ALT (SGPT) Less than 7 U/L (8-55); AST (SGOT) 11 U/L (5-34); Albumin 4.3 g/dL (3.5-5.0); Alkaline Phosphatase 44 U/L (40-110); Bilirubin, Total 0.2 mg/dL (0.2-1.2); Calcium 8.9 mg/dL (7.8-10.44); Estimated GFR 121; Globulin 2.8 g/dL (2.4-3.5); Glucose 154 mg/dL (70-105); Protein, Total 7.1 g/dL (6.0-8.3)
[2023-10-30] MEDS: Escitalopram Oxalate 20 mg Tablet PO SCH (08:52)
[2023-10-31] MEDS: GoLYTELY 4,000 ml Bottle PO SCH (17:47)
[2023-10-31] MEDS: Ondansetron PF 4 MG/2 ML Vial IVP PRN (20:59)
[2023-10-31 23:31] VITALS: TEMP 97.9
[2023-11-01 07:22] LABS: Anion Gap 12 mmol/L (10-20); BUN (Urea Nitrogen) 12 mg/dL (7.0-18.7); Calc. Creatinine Clearance 137 mL/min (70-130); Carbon Dioxide 25 mmol/L (22-29); Chloride 107 mmol/L (98-107); Estimated GFR 112; Glucose 115 mg/dL (70-105); Potassium 3.6 mmol/L (3.5-5.1); Sodium 140 mmol/L (136-145)
[2023-11-01 07:32] LABS: #Monocytes 0.8 thou/uL (0.11-0.59); #Neutrophils 6.8 thou/uL (1.40-6.50); %Basophils 0.1 % (0.0-1.0); %Lymphocytes 32.9 % (21.0-51.0); %Monocytes 6.9 % (0.0-10.0); %Neutrophils 59.6 % (42.0-75.0); Hematocrit 31.5 % (36.0-47.0); Hemoglobin 10.4 g/dL (12.0-16.0); Mean Corpuscular Hemoglobin 28.6 pg (27.0-31.0); Mean Corpuscular Volume 86.5 fl (78.0-98.0); Mean Platelet Volume 10.5 fL (7.4-10.4); Platelet Count 353 10x3/uL (130-400); RBC Distribution Width 14.6 % (11.5-14.5); Red Blood Cell (RBC) Count 3.64 mill/uL (4.20-5.40); White Blood Cell (WBC) Count 11.3 10x3/uL (4.8-10.8)
[2023-11-01] MEDS ORDERED: PROPOFOL 40 ML ONE (08:17)
[2023-11-01] MEDS ORDERED: PROPOFOL 20 ML ONE (08:34)
[2023-11-01] MEDS ORDERED: Ondansetron PF 4 MG/2 ML Vial ONE (09:02)
[2023-11-01] MEDS ORDERED: Lidocaine 2% Viscous Solution 10 ML, Aluminum & Magnesium Hydroxide 30 ML SSW SCH (11:51)
[2023-11-01] MEDS ORDERED: Promethazine HCl 25 MG in Sodium Chloride 0.9% 50 ML IVPB PRN (11:51)
[2023-11-01] MEDS ORDERED: hydrALAZINE 20 MG/ML VIAL SLOW IVP SCH (12:30)
[2023-11-01 12:42] VITALS: BP 167/101
[2023-11-01] MEDS ORDERED: Docusate 100 MG CAP PO SCH (21:00)
== END 2023-11-01 12:49 | disposition left against medical advice (07) | DRG 386 ==
LOC: SUATTDRO 10:59 → ERS 10:59 → T4-B 15:11 → OBSVTOIN 10-31 10:32
PROVIDERS: ADMIT Family Medicine; ATTEND Internal Medicine
PROC: 0DB68ZX Excision of Stomach, Via Natural or Artificial Opening Endoscopic, Diagnostic (ICD-10-PCS; principal; 2023-11-01)
PROC: 0DBG8ZX Excision of Left Large Intestine, Via Natural or Artificial Opening Endoscopic, Diagnostic (ICD-10-PCS; 2023-11-01)
PROC: 0DBP8ZX Excision of Rectum, Via Natural or Artificial Opening Endoscopic, Diagnostic (ICD-10-PCS; 2023-11-01)
DX: K51.911 Ulcerative colitis, unspecified with rectal bleeding (principal); E87.1 Hypo-osmolality and hyponatremia; E87.20 Acidosis, unspecified; J45.909 Unspecified asthma, uncomplicated; F41.1 Generalized anxiety disorder; G47.00 Insomnia, unspecified; E66.9 Obesity, unspecified; E86.0 Dehydration; Z68.33 Body mass index [BMI] 33.0-33.9, adult; Z79.899 Other long term (current) drug therapy; R11.2 Nausea with vomiting, unspecified; F12.10 Cannabis abuse, uncomplicated
CPT/HCPCS: 36415; 80048; 80053; 80306; 83690; 84703; 85025; 86140; 88305; 88342; 96361; 96372; 96374; 96375; 96376; G0378; J1100; J1790; J2270; J2405; J2704; J2765; J2920

== ENCOUNTER 2025-05-20 17:15 | Emergency (ER) | payer SELFPAY ==
[~2025-05-20 17:15] MED LIST: Iopamidol-370 76% 500 ML MDV (1 ML CHARGE) ONE
[2025-05-20] MEDS ORDERED: Droperidol 5 MG/2 ML VIAL ONE (17:33)
[2025-05-20 17:41] LABS: #Basophils 0.03 10x3/uL (0.0-0.2); #Eosinophils Less than 0.03 10x3/uL (0.0-0.7); #Monocytes 0.42 10x3/uL (0.11-0.59); #Neutrophils 6.04 10x3/uL (1.40-6.50); %Basophils 0.4 % (0.0-1.0); %Eosinophils 0.0 % (0.0-10.0); %Lymphocytes 17.7 % (21.0-51.0); %Monocytes 5.3 % (0.0-10.0); %Neutrophils 76.2 % (42.0-75.0); Hematocrit 36.9 % (36.0-47.0); Hemoglobin 12.6 g/dL (12.0-16.0); Mean Corpuscular Hemoglobin 28.1 pg (27.0-31.0); Mean Corpuscular Volume 82.4 fL (78.0-98.0); Platelet Count 294 10x3/uL (130-400); Red Blood Cell (RBC) Count 4.48 mill/uL (4.20-5.40); White Blood Cell (WBC) Count 7.92 10x3/uL (4.8-10.8)
[2025-05-20 17:58] LABS: Lipase 11 U/L (8-78); Magnesium 1.6 mg/dL (1.6-2.6)
[2025-05-20 17:59] LABS: Acetaminophen Less than 10 mcg/mL (Less than 10); Salicylate Less than 8.0 mg/dL (Less than 8.0)
[2025-05-20 18:08] LABS: ALT (SGPT) 24 U/L (Less than 34); AST (SGOT) 26 U/L (11-34); Albumin 4.1 g/dL (3.1-4.5); Alkaline Phosphatase 39 U/L (40-110); Anion Gap 24 mmol/L (10-20); BUN (Urea Nitrogen) 6 mg/dL (7.0-18.7); Bilirubin, Total 0.6 mg/dL (0.3-1.2); Calc. Creatinine Clearance 0 mL/min (70-130); Calcium 8.5 mg/dL (7.8-10.44); Carbon Dioxide 9 mmol/L (22-29); Chloride 110 mmol/L (98-107); Globulin 2.9 g/dL (2.4-3.5); Glucose 109 mg/dL (70-105); Potassium 2.9 mmol/L (3.5-5.1); Sodium 140 mmol/L (136-145)
[2025-05-20 18:10] LABS: BHCG - Serum Negative (NEGATIVE); Pregs Control Background? CLEAR/WHITE (CLR/WHITE); Pregs Control Bar Appear? YES (CONTROL BAR)
[2025-05-20 18:28] LABS: Base Excess -10.1 mEq/L (-2.0 to +3.0); Calcium, Ionized (venous) 1.01 mmol/L (1.16-1.32); Chloride (VBG) 107 mmol/L (98-106); Hematocrit-VBG 42 % (36.0-47.0); Hemoglobin (Hb) 14.4 g/dL (11.7-15.5); Potassium (VBG) 3.30 mmol/L (3.70-5.30); Sodium 142 mmol/L (133-146)
[2025-05-20 18:29] LABS: Actual Bicarbonate (HCO3v) 12.5 mEq/L (22-28)
[2025-05-20 18:51] LABS: Glucose, Urine (Dipstick) Normal (Negative); Leukocyte Negative Leu/uL (Negative); Protein, Urine (Dipstick) Negative (Neg-Trace); RBC/HPF 0-3 HPF (0-3); Specific Gravity, Urine 1.008 (1.002-1.036); WBC/HPF None Seen HPF (0-3)
[2025-05-20 18:52] LABS: Bacteria/HPF 1+ HPF (None Seen); CAUTI Indications for Culture Dysuria,urgency,freq
[2025-05-20 18:53] LABS: Urine Culture Reflex No No
[2025-05-20 19:11] LABS: Cocaine Metabolite Screen Negative (Negative); THC/Cannabinoid Screen PRELIM POSITIVE (Negative); Tricyclic Screen Negative (Negative)
[2025-05-20] MEDS ORDERED: Potassium Bicarbonate/Cit Ac 20 MEQ TAB ONE (19:27)
== END 2025-05-20 22:30 | disposition home or self-care (01) ==
LOC: ERS 17:15
DX: R10.84 Generalized abdominal pain (principal); J45.909 Unspecified asthma, uncomplicated; K29.70 Gastritis, unspecified, without bleeding; K51.90 Ulcerative colitis, unspecified, without complications; F17.290 Nicotine dependence, other tobacco product, uncomplicated
CPT/HCPCS: 36415; 74177; 80053; 80306; 80307; 81001; 82805; 83605; 83690; 83735; 84703; 85025; 93005; 96361; 96374; J1790; Q9967